=== PATIENT | male | born 1960 | race Caucasian/White ===

== ENCOUNTER 2024-12-12 12:58 | Outpatient (AMB) | payer MEDICARE, SELFPAY ==
[2024-12-12 13:28] VITALS: BP 138/80; PULSE 85; O2SAT 95
--- NOTE | 2024-12-12 13:28 | A.OFFVIS_ITS ---
Vital Signs 12/12/24 13:28 BP 138/80 Blood Pressure Location Lt brachial Position Sitting Pulse 85 Pulse Oximetry (%) 95 Oxygen Delivery Method Room Air Intake Visit Reasons: bl knee pain/ inj Intake Note: Patient presents for bilateral knee injection and pain in hands today. Allergies No Known Allergies Allergy (Verified 12/12/24 13:33) HPI HPI bl knee pain/ inj: Details: He had about 2 months of benefit with cortisone injection in bilateral knees. He continues to have knee pain. He is working 10 hour day 6 days a week. He is having weakness in his legs and feels very tired at the end of the day. He did 5 weeks of physical therapy, which focused on stretching, modalities and 10s unit. He did not receive guidance on strengthening program for his lower extremities. He is currently using Tylenol 2000 mg daily. Tylenol takes the edge off. He rarely uses ibuprofen because he only has 1 kidney. He was told to avoid oral NSAIDs. Diclofenac gel is ineffective. Cortisone injection bilateral CMCs were effective in lasted more than 3 months. He is also wearing a brace, which is helping during his working day. [facility] Surgical History (Updated 12/12/24 @ 13:38 by Jackelyn Escalante [facility]) H/O vascular surgery H/O knee surgery History of nephrectomy Physical Exam Vital Signs: Last Vital Signs Pulse 85 12/12/24 13:28 BP 138/80 12/12/24 13:28 Pulse Ox 95 12/12/24 13:28 Oxygen Delivery Method Room Air 12/12/24 13:28 Const Other: General: Comfortable CVS: RRR Respiratory: clear to auscultation bilaterally. Good respiratory effort Skin: No lesions seen MSK: Squaring of bilateral CMCs with tenderness on palpation. No effusions present. No tenderness on palpation of joint line of knees. Right knee crepitus palpated. Knee flexion 80 degrees bilateral. He does not have full external rotation of bilateral hips. Office Procedures AMB Joint Injection/Aspiration Coding - Small Joint Procedure code (CPT) selection complete AMB Joint Injection/Aspiration Joint Injection/Aspiration Details: Bilateral CMC joint Prep: site was prepped using aseptic technique Injected into each site: 10 mg of, Kenalog, with 0.25 mL of and 1% plain lidocaine Procedure: The patient tolerated the procedure well. Postprocedure protocol was discussed with patient. Coding - Small Joint Additional procedure code (CPT) needed (Bilateral procedure modifier needed) Office Meds lidocaine (PF) 10 mg/mL (1 %) injection solution Performing Provider: Maciel Clifford MD Performing Location: [facility] [place] [facility] Administered by: Maciel Clifford MD on 12/12/24 14:20 Dose Route Admin Location Dispensed Lot Number Expiration Date [facility] Advertising Director 2.5 mg Infiltration 2 mL [id number] FRESENIUS KABI Kenalog 40 mg/mL suspension for injection Performing Provider: Maciel Clifford MD Performing Location: [facility] [place] [facility] Administered by: Maciel Clifford MD on 12/12/24 14:20 Dose Route Admin Location Dispensed Lot Number Expiration Date [facility] Advertising Director 10 mg intra-articular 1 mL [id number] [employer] lidocaine (PF) 10 mg/mL (1 %) injection solution Performing Provider: Maciel Clifford MD Performing Location: [facility] [place] [facility] Administered by: Maciel Clifford MD on 12/12/24 14:18 Dose Route Admin Location Dispensed Lot Number Expiration Date [facility] Advertising Director 2.5 mg Infiltration 2 mL [id number] FRESENIUS KABI Kenalog 40 mg/mL suspension for injection Performing Provider: Maciel Clifford MD Performing Location: [facility] [place] [facility] Administered by: Maciel Clifford MD on 12/12/24 14:18 Dose Route Admin Location Dispensed Lot Number Expiration Date [facility] Advertising Director 10 mg intra-articular 1 mL [id number] [employer] Assessment & Plan Assessment & Plan (1) Osteoarthritis of knees, bilateral: Comment: Pain is uncontrolled. He did not have lasting benefit with cortisone injections. Tylenol takes the edge off. Contraindication to oral NSAIDs due to patient having 1 kidney. He went to physical therapy and continues to do the exercises at home but continues to have weakness in his lower extremities. We discussed another round of physical therapy, which he is agreeable to. We discussed next steps in management of pain control. Discussed side effects and benefits of Euflexxa. Code(s): M17.0 - Bilateral primary osteoarthritis of knee Category: Medical Qualifiers: Osteoarthritis type: primary Qualified Code(s): M17.0 - Bilateral primary osteoarthritis of knee Plan: Bilateral knee Euflexxa PA He agreed to another round of physical therapy for lower extremity strength training He will need to be scheduled 3 weekly consecutive visits as soon as Euflexxa is approved on Monday afternoon (2) Osteoarthritis of carpometacarpal (CMC) joint of both thumbs: Comment: Pain is uncontrolled. He has benefit with using wrist splints. He responded well to last cortisone injections in 05/2024. He is having difficulty with dexterity/fine motor movements with his fingers. He agreed to OT. Code(s): M18.0 - Bilateral primary osteoarthritis of first carpometacarpal joints Category: Medical Plan: He received bilateral CMC cortisone injections this visit OT referral to improve hand strength Return to clinic in 3 months Orders: Orders PT Evaluation and Treatment Today M17.0 - Bilateral primary osteoarthritis of knee AMB Joint Injection/Aspiration Today M18.0 - Bilateral primary osteoarthritis of first carpometacarpal joints AMB Joint Injection/Aspiration Today M18.0 - Bilateral primary osteoarthritis of first carpometacarpal joints OT Evaluation and Treatment Today M18.0 - Bilateral primary osteoarthritis of first carpometacarpal joints Medications: New Kenalog (triamcinolone acetonide) 10 mg (0.25 mL) intra-articular ONCE 0.25 mL 0RF NS M18.0 - Bilateral primary osteoarthritis of first carpometacarpal joints lidocaine (PF) 5 mg (0.5 mL) Infiltration ONCE 0.5 mL 0RF M18.0 - Bilateral primary osteoarthritis of first carpometacarpal joints lidocaine (PF) 5 mg (0.5 mL) Infiltration ONCE 0.5 mL 0RF M18.0 - Bilateral primary osteoarthritis of first carpometacarpal joints Kenalog (triamcinolone acetonide) 10 mg (0.25 mL) intra-articular ONCE 0.25 mL 0RF NS M18.0 - Bilateral primary osteoarthritis of first carpometacarpal joints Coding Level of Care Code Est Pt Level 4 (57762) Complex EM visit Add On G2211 Diagnoses Primary osteoarthritis of both knees M17.0 Osteoarthritis type: primary Osteoarthritis of carpometacarpal (CMC) joint of both thumbs M18.0 CPT Codes Coding - - Small joint: 77651 - Small Joint ([id number]) Coding - - Small joint: - Small Joint ([id number])
== END 2024-12-12 13:41 | disposition home or self-care (01) ==
PROVIDERS: Visit Provider Internal Medicine Rheumatology
DX: M17.0 Bilateral primary osteoarthritis of knee (principal); M18.0 Bilateral primary osteoarthritis of first carpometacarpal joints
CPT/HCPCS: 20600; 99214; G2211

== ENCOUNTER → 2024-12-12 12:58 | Outpatient (BNVA) | payer MEDICARE, SELFPAY | PROVIDERS: Visit Provider Internal Medicine Rheumatology | DX: M17.0 Bilateral primary osteoarthritis of knee (principal); M18.0 Bilateral primary osteoarthritis of first carpometacarpal joints | CPT/HCPCS: 20600; 99212; J2003; J3300 ==

== ENCOUNTER 2025-01-23 14:15 | Outpatient (AMB) | payer MEDICARE, SELFPAY ==
[2025-01-23 14:43] VITALS: BP 138/74; PULSE 50; O2SAT 98; BMI 37.4
--- NOTE | 2025-01-23 14:43 | A.OFFVIS_ITS ---
Vital Signs 01/23/25 14:43 Height 5 ft 10.28 in Weight 262 lb 9.129 oz BMI 37.4 BP 138/74 Blood Pressure Location Lt brachial Position Sitting Pulse 50 Pulse Source Pulse Oximeter Pulse Oximetry (%) 98 Oxygen Delivery Method Room Air Intake Visit Reasons: knee pain/euflexxa inj Intake Note: pt presents today for knee pain follow up as well as euflexxa injection Allergies No Known Allergies Allergy (Verified 01/23/25 14:43) HPI HPI knee pain/euflexxa inj: Details: He is recovering from URI. He denies fever and cough. He has sinus congestion. [facility] Surgical History H/O vascular surgery H/O knee surgery History of nephrectomy Review of Systems Const All systems reviewed & are unremarkable except as noted in HPI and below Physical Exam Vital Signs: Last Vital Signs Pulse 50 01/23/25 14:43 BP 138/74 01/23/25 14:43 Pulse Ox 98 01/23/25 14:43 Oxygen Delivery Method Room Air 01/23/25 14:43 BMI result Body Mass Index 37.4 Const Other: General: Comfortable MSK: No tenderness on palpation of joint line of knees. Right knee crepitus palpated. Knee flexion 80 degrees bilateral. He does not have full external rotation of bilateral hips. Office Procedures AMB Joint Injection/Aspiration Joint Injection/Aspiration Details: Bilateral knees Prep: site was prepped using aseptic technique Injected: Euflexxa 20 mg was injected into each knee using 25 gauge 1-1/2 inch needle Procedure: The patient tolerated the procedure well. Postprocedure protocol was discussed with patient. Coding 15171 - Bilateral Large Joint Procedure code (CPT) selection complete AMB Joint Injection/Aspiration Coding 05448 - Bilateral Large Joint Procedure code (CPT) selection complete Office Meds Euflexxa 10 mg/mL (mw 2.4-3.6 million) intra-articular syringe Performing Provider: Maciel Clifford MD Performing Location: [facility] Administered by: Maciel Clifford MD on 01/23/25 20:50 Dose Route Admin Location Dispensed Lot Number Expiration Date N[employer] Quality Control Technician 20 mg intra-articular 2 mL [id number] Euflexxa 10 mg/mL (mw 2.4-3.6 million) intra-articular syringe Performing Provider: Maciel Clifford MD Performing Location: [facility] Administered by: Maciel Clifford MD on 01/23/25 20:50 Dose Route Admin Location Dispensed Lot Number Expiration Date [employer] Quality Control Technician 20 mg intra-articular 2 mL [id number] Assessment & Plan Assessment & Plan (1) Osteoarthritis of knees, bilateral: Comment: Pain is uncontrolled. He is due for Euflexxa bilateral knees today. Rheumatology history: Failed cortisone injections. Tylenol takes the edge off. Contraindication to oral NSAIDs due to patient having 1 kidney. He went to physical therapy and continues to do the exercises at home but continues to have weakness in his lower extremities. Euflexxa 12/2024 Code(s): M17.0 - Bilateral primary osteoarthritis of knee Category: Medical Qualifiers: Osteoarthritis type: primary Qualified Code(s): M17.0 - Bilateral primary osteoarthritis of knee Plan: Patient received bilateral knee Euflexxa injections Return to clinic in 1 week Orders: Orders AMB Joint Injection/Aspiration 01/23/25 M17.0 - Bilateral primary osteoarthritis of knee AMB Joint Injection/Aspiration 01/23/25 M17.0 - Bilateral primary osteoarthritis of knee Coding Level of Care Code Est Pt Level 3 (39438) Complex EM visit Add On G2211 Diagnoses Primary osteoarthritis of both knees M17.0 Osteoarthritis type: primary CPT Codes Coding - 21682 - Bilateral Large Joint: 60460 - Bilateral Large Joint ([id number]) Coding - 01048 - Bilateral Large Joint: 64248 - Bilateral Large Joint ([id number])
== END 2025-01-23 15:24 | disposition home or self-care (01) ==
PROVIDERS: PCP Internal Medicine; Visit Provider Internal Medicine Rheumatology
DX: M17.0 Bilateral primary osteoarthritis of knee (principal)
CPT/HCPCS: 20610

== ENCOUNTER → 2025-01-23 14:15 | Outpatient (BNVA) | payer MEDICARE, SELFPAY | PROVIDERS: PCP Internal Medicine; Visit Provider Internal Medicine Rheumatology | DX: M17.0 Bilateral primary osteoarthritis of knee (principal) | CPT/HCPCS: 20610; 99212; J7323 ==

== ENCOUNTER 2025-01-27 13:58 | Outpatient (RCR) | payer MEDICARE, SELFPAY ==
--- NOTE | 2024-12-31 12:47 | MHC.OT.EP ---
[address] [phone] Occupational Therapy Plan of Care Patient Name: Gerald Harrington Date of Evaluation: 12/24/24 Diagnosis: Pain Location: B thumbs Pain Score: 5 Pain Scale Used: Aggravating Factors: over use - PT WILL NEED MODIFICATIONS AT WORK Alleviating Factors: Assessment: Pt is a 64yr old R hand dominants male who has been experiencing bilateral thumb pain for years. He saw the MD who diagnosed him w/ B CMC OA and gave him cortisone shots and referred him to skilled OT therapy. He reports the cortisone shots did not help. 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 He is unable to wear splints while working; but has purchased an orthoses made of rubber which he reports helps and will bring to the next tx. Pt was referred to skilled OT therapy for education on joint protection, ROM exercises, and increased pain free use of his B hands. Frequency and Duration: The patient will be seen 1 x a week for 4 weeks Short Term Goals: SEE BELOW Nursing Home Goals: Pt will be complaint w/ joint protection techniques Pt will report 2/10 pain in his R hand w/ activity Pt will be compliant w/ use of modalities to decrease pain Treatment Plan: Therapeutic Exercise Therapeutic Activity Home Exercise Program Splinting Neuro Re-ed Patient Education Desensitization/Sensory Re-ed Edema Control ADL Training Ultrasound NMES Iontophoresis Paraffin Fluidotherapy MHP Cold Packs Joint Mobilization Soft Tissue Mobilization Kinesiotaping Other (see comments) Electronically Signed By: Ronna Sosa OTR/L Please Sign and return to therapist. Thank you once again for your referral.
== END 2025-03-13 10:18 | disposition home or self-care (01) ==
LOC: HO.OT 13:58
PROVIDERS: PCP Internal Medicine; Visit Provider Internal Medicine Rheumatology
DX: M18.0 Bilateral primary osteoarthritis of first carpometacarpal joints (principal)
CPT/HCPCS: 97035; 97110; 97140; 97165

== ENCOUNTER 2025-01-29 09:16 | Outpatient (AMB) | payer MEDICARE, SELFPAY ==
--- NOTE | 2025-01-29 09:50 | A.OFFVIS_ITS ---
Vital Signs 01/29/25 10:00 Height 5 ft 10 in Weight 262 lb BMI 37.6 BP 124/80 Blood Pressure Location Lt brachial Position Sitting Pulse 64 Pulse Source Pulse Oximeter Pulse Oximetry (%) 98 Oxygen Delivery Method Room Air Intake Visit Reasons: knee pain/euflexxa inj Intake Note: pt states that the injections from last week wore off. Allergies No Known Allergies Allergy (Verified 01/23/25 14:43) HPI HPI knee pain/euflexxa inj: Details: Doing well. Increase mobility after 1st Euflexxa injections. [facility] Surgical History H/O vascular surgery H/O knee surgery History of nephrectomy Review of Systems Const All systems reviewed & are unremarkable except as noted in HPI and below Physical Exam Vital Signs: Last Vital Signs Pulse 64 01/29/25 10:00 BP 124/80 01/29/25 10:00 Pulse Ox 98 01/29/25 10:00 Oxygen Delivery Method Room Air 01/29/25 10:00 BMI result Body Mass Index 37.6 Const Other: General: Comfortable MSK: No tenderness on palpation of joint line of knees. Right knee crepitus palpated. Knee flexion 80 degrees bilateral. He does not have full external rotation of bilateral hips. Office Procedures AMB Joint Injection/Aspiration Joint Injection/Aspiration Details: Bilateral knees Prep: site was prepped using aseptic technique Injected: Euflexxa 20 mg was injected into each knee using 25 gauge 1-1/2 inch needle Procedure: The patient tolerated the procedure well. Postprocedure protocol was discussed with patient. Coding 72604 - Bilateral Large Joint Procedure code (CPT) selection complete AMB Joint Injection/Aspiration Coding 03001 - Bilateral Large Joint Procedure code (CPT) selection complete Office Meds Euflexxa 10 mg/mL (mw 2.4-3.6 million) intra-articular syringe Performing Provider: Maciel Clifford MD Performing Location: [facility] [place] [facility] Administered by: Maciel Clifford MD on 02/01/25 13:21 Dose Route Admin Location Dispensed Lot Number Expiration Date NDC Correspondence Clerk 20 mg intra-articular 2 mL [id number] Euflexxa 10 mg/mL (mw 2.4-3.6 million) intra-articular syringe Performing Provider: Maciel Clifford MD Performing Location: [facility] [place] [facility] Administered by: Maciel Clifford MD on 02/01/25 13:21 Dose Route Admin Location Dispensed Lot Number Expiration Date [facility] Correspondence Clerk 20 mg intra-articular 2 mL [id number] Assessment & Plan Assessment & Plan (1) Osteoarthritis of knees, bilateral: Comment: Pain is uncontrolled. He is due for Euflexxa bilateral knees #2 today. Rheumatology history: Failed cortisone injections. Tylenol takes the edge off. Contraindication to oral NSAIDs due to patient having 1 kidney. He went to physical therapy and continues to do the exercises at home but continues to have weakness in his lower extremities. Euflexxa 12/2024 Code(s): M17.0 - Bilateral primary osteoarthritis of knee Category: Medical Qualifiers: Osteoarthritis type: primary Qualified Code(s): M17.0 - Bilateral primary osteoarthritis of knee Plan: Patient received bilateral knee Euflexxa injections Return to clinic in 1 week Orders: Orders AMB Joint Injection/Aspiration 01/29/25 M17.0 - Bilateral primary osteoarthritis of knee AMB Joint Injection/Aspiration 01/29/25 M17.0 - Bilateral primary osteoarthritis of knee Medications: New Euflexxa (sodium hyaluronate (viscosup)) 20 mg (2 mL) intra-articular ONCE 2 mL 0RF NS M17.0 - Bilateral primary osteoarthritis of knee Euflexxa (sodium hyaluronate (viscosup)) 20 mg (2 mL) intra-articular ONCE 2 mL 0RF NS M17.0 - Bilateral primary osteoarthritis of knee Coding Level of Care Code Est Pt Level 3 (03451) Complex EM visit Add On G2211 Diagnoses Primary osteoarthritis of both knees M17.0 Osteoarthritis type: primary CPT Codes Coding - 44977 - Bilateral Large Joint: 99160 - Bilateral Large Joint ([id number]) Coding - 67515 - Bilateral Large Joint: 15847 - Bilateral Large Joint ([id number])
[2025-01-29 10:00] VITALS: BP 124/80; PULSE 64; O2SAT 98; BMI 37.6
== END 2025-01-29 10:08 | disposition home or self-care (01) ==
PROVIDERS: PCP Internal Medicine; Visit Provider Internal Medicine Rheumatology
DX: M17.0 Bilateral primary osteoarthritis of knee (principal)
CPT/HCPCS: 20610; 99213

== ENCOUNTER → 2025-01-29 09:16 | Outpatient (BNVA) | payer MEDICARE, SELFPAY | PROVIDERS: PCP Internal Medicine; Visit Provider Internal Medicine Rheumatology | DX: M17.0 Bilateral primary osteoarthritis of knee (principal) | CPT/HCPCS: 20610; 99212; J7323 ==

== ENCOUNTER → 2025-02-11 14:13 | Outpatient (BNVA) | payer MEDICARE, SELFPAY | PROVIDERS: PCP Internal Medicine; Visit Provider Internal Medicine Rheumatology | DX: M17.0 Bilateral primary osteoarthritis of knee (principal); M18.0 Bilateral primary osteoarthritis of first carpometacarpal joints | CPT/HCPCS: 20610; 99212; J7323 ==

== ENCOUNTER 2025-10-28 14:44 | Outpatient (AMB) | payer MEDICARE, SELFPAY ==
--- NOTE | 2025-10-28 14:48 | A.OFFVIS_ITS ---
Vital Signs 10/28/25 14:49 Height 5 ft 11 in Weight 260 lb 2.327 oz BMI 36.3 BP 120/80 Blood Pressure Location Rt brachial Position Sitting Pulse 97 Pulse Source Pulse Oximeter Pulse Oximetry (%) 99 Oxygen Delivery Method Room Air Intake Visit Reasons: Knee pain/Euflexxa #1 Intake Note: Patient presents for euflexxa injection 1 Accompanied by: Self / Same As Patient Allergies No Known Allergies Allergy (Verified 10/28/25 14:48) HPI HPI Knee pain/Euflexxa #1: Details: Hard to get up and walk. He will rest when he gets up and then start his gait. Later part of summer he had more pain in knees and was more cautious when ambulating. He has been experiencing hand pain making it difficult for him to utilize his hands. [facility] Surgical History H/O vascular surgery H/O knee surgery History of nephrectomy Physical Exam Vital Signs: Last Vital Signs Pulse 97 10/28/25 14:49 BP 120/80 10/28/25 14:49 Pulse Ox 99 10/28/25 14:49 Oxygen Delivery Method Room Air 10/28/25 14:49 BMI result Body Mass Index 36.3 Const Other: General: Comfortable MSK: Tender bilateral CMCs with squaring present. No tenderness on palpation of joint line of knees. Right knee crepitus palpated. Knee flexion 90 degrees bilateral. He does not have full external rotation of bilateral hips. Office Procedures AMB Joint Injection/Aspiration Joint Injection/Aspiration Details: Bilateral CMC joint Prep: site was prepped using aseptic technique Injected into each site: 10 mg of, Kenalog, with 0.25 mL of and 1% plain lidocaine Procedure: Informed verbal consent was obtained. The patient tolerated the procedure well. Postprocedure protocol was discussed with patient. Coding - Small Joint Additional procedure code (CPT) needed (Bilateral procedure) AMB Joint Injection/Aspiration Joint Injection/Aspiration Details: Bilateral knees Prep: site was prepped using aseptic technique Injected: Euflexxa 20 mg was injected into each knee using 25 gauge 1-1/2 inch needle Procedure: Informed verbal consent was obtained. The patient tolerated the procedure well. Postprocedure protocol was discussed with patient. Coding - Bilateral Large Joint Procedure code (CPT) selection complete AMB Joint Injection/Aspiration Coding - Bilateral Large Joint Procedure code (CPT) selection complete AMB Joint Injection/Aspiration Coding - Small Joint Procedure code (CPT) selection complete Office Meds lidocaine (PF) 10 mg/mL (1 %) injection solution Performing Provider: Maciel Clifford MD Performing Location: [facility] [place] [facility] Administered by: Maciel Clifford MD on 10/28/25 15:13 Dose Route Admin Location Dispensed Lot Number Expiration Date [facility] [place] 0.25 mL Infiltration 2 mL [id number] 07/27/28 77042-546-36 CAITLIN [employer]US KA Total Dispensed Waste 2 mL 87.5 % Kenalog 40 mg/mL suspension for injection Performing Provider: Maciel Clifford MD Performing Location: [facility] [place] [facility] Administered by: Maciel Clifford MD on 10/28/25 15:13 Dose Route Admin Location Dispensed Lot Number Expiration Date [facility] [place] 10 mg intra-articular 1 mL [id number] 05/26/27 [address]-0 A [employer] Total Dispensed Waste 1 mL 75 % Euflexxa 10 mg/mL (mw 2.4-3.6 million) intra-articular syringe Performing Provider: Maciel Clifford MD Performing Location: [facility] [place] [facility] Administered by: Maciel Clifford MD on 10/28/25 15:13 Dose Route Admin Location Dispensed Lot Number Expiration Date [facility] [place] 20 mg intra-articular 2 mL [id number] 10/27/26 [address]-9 FE [employer]ING [employer] Total Dispensed Waste 2 mL 0 % Euflexxa 10 mg/mL (mw 2.4-3.6 million) intra-articular syringe Performing Provider: Maciel Clifford MD Performing Location: [facility] [place] [facility] Administered by: Maciel Clifford MD on 10/28/25 15:13 Dose Route Admin Location Dispensed Lot Number Expiration Date [facility] [place] 20 mg intra-articular 2 mL [id number] 10/27/26 [address]-6 FE [employer]ING [employer]ARMAC Total Dispensed Waste 2 mL 0 % lidocaine (PF) 10 mg/mL (1 %) injection solution Performing Provider: Maciel Clifford MD Performing Location: [facility] [place] [facility] Administered by: Maciel Clifford MD on 10/28/25 15:13 Dose Route Admin Location Dispensed Lot Number Expiration Date [facility] [place] 0.25 mL Infiltration 2 mL [id number] 07/27/28 81144-925-55 CAITLIN SHAH Total Dispensed Waste 2 mL 87.5 % Kenalog 40 mg/mL suspension for injection Performing Provider: Maciel Clifford MD Performing Location: [facility] [place] [facility] Administered by: Maciel Clifford MD on 10/28/25 15:13 Dose Route Admin Location Dispensed Lot Number Expiration Date [facility] [place] 10 mg intra-articular 1 mL [id number] 04/29/27 [address]-6 A [employer] Total Dispensed Waste 1 mL 75 % Assessment & Plan Assessment & Plan (1) Osteoarthritis of knees, bilateral: Comment: Pain is uncontrolled. Euflexxa has worn off. Rheumatology history: Failed cortisone injections. Tylenol takes the edge off. Contraindication to oral NSAIDs due to patient having 1 kidney. He went to physical therapy and continues to do the exercises at home but continues to have weakness in his lower extremities. Euflexxa 12/2024-01/2025, 10/2025 Code(s): M17.0 - Bilateral primary osteoarthritis of knee Category: Medical Qualifiers: Osteoarthritis type: primary Qualified Code(s): M17.0 - Bilateral primary osteoarthritis of knee Plan: Patient received bilateral knee Euflexxa injections #1 this is that Return to clinic in 1 week (2) Osteoarthritis of carpometacarpal (CMC) joint of both thumbs: Comment: Pain in bilateral CMCs is uncontrolled. Rheumatology history: Bilateral cortisone injections May 2024 and 11/2024 and utilizes bracing when needed. He has benefit with using wrist splints. Completed OT. Code(s): M18.0 - Bilateral primary osteoarthritis of first carpometacarpal joints Category: Medical Plan: Patient received bilateral CMC cortisone injections Continue exercises learned from OT Continue splinting CMCs PRN Return to clinic in 6 months or sooner if needed for cortisone injections CMCs Orders: Orders AMB Joint Injection/Aspiration Today M18.0 - Bilateral primary osteoarthritis of first carpometacarpal joints AMB Joint Injection/Aspiration Today M17.0 - Bilateral primary osteoarthritis of knee AMB Joint Injection/Aspiration Today M17.0 - Bilateral primary osteoarthritis of knee AMB Joint Injection/Aspiration Today M18.0 - Bilateral primary osteoarthritis of first carpometacarpal joints Coding Level of Care Code Est Pt Level 4 (55061) Complex visit Add On G2211 Diagnoses Primary osteoarthritis of both knees M17.0 Osteoarthritis type: primary Osteoarthritis of carpometacarpal (CMC) joint of both thumbs M18.0 CPT Codes Coding - 64426 - Small joint: 28851 - Small Joint ([id number]) Coding - 45409 - Bilateral Large Joint: 86524 - Bilateral Large Joint ([id number]) Coding - 56046 - Bilateral Large Joint: 12476 - Bilateral Large Joint ([id number]) Coding - 95711 - Small joint: 12356 - Small Joint ([id number])
[2025-10-28 14:49] VITALS: BP 120/80; PULSE 97; O2SAT 99; BMI 36.3
--- OUTSIDE RECORDS SUMMARY | 2025-10-28 16:38 | XMS_ITS | Clinical Summary ---
Author Organization [facility] Address [address] [employer] [address] [address] Phone Care Team Providers Care Refining Engineer Name Role Phone Sin Vegas MD Primary Care Provider [phone] Allergies No known active allergies Medications acetaminophen (TYLENOL) 500 MG tablet Take 1,000 mg by mouth. 01/18/2023 Active simvastatin (ZOCOR) 20 MG tablet take 1 tablet by mouth everyday at bedtime 09/11/2023 Active Active Problems Problem Noted Date Diagnosed Date Primary osteoarthritis of both first carpometaca rpal joints 11/03/2023 Assessment & Plan (11/03/2023 3:49 PM EST): Degenerative arthritis in multiple areas most bothersome today at the base of both thumbs, with pain on grasping. Injected both basal joints with 40 mg of triamcinolone. He can come in for knee injections in a few weeks. Continue with Tylenol 500 mg as needed. Family History Medical History Relation Comments Diabetes Father Rheumatoid arthritis Mother Diabetes Paternal Grandfather Diabetes Paternal Grandmother No Known Problems Sister Relation Status Comments Father Mother Paternal Grandfather Paternal Grandmother Sister Alive Social History Tobacco Use Types Packs/Day Years Used Date Smoking Tobacco: Former Cigarettes Smokeless Tobacco: Never Tobacco Cessation:Counseling Given: Not Answered Alcohol Use Standard Drinks/Week Comments Yes 0 (1 standard drink = 0.6 oz pur e alcohol) couple of beers of a year Education Answer Date Recorded Are you interested in more education? Not on ranjana e 09/29/2023 Are you concerned about learning? Not on file 09/29/2023 No 09/29/2023 No 09/29/2023 Digital Access Answer Date Recorded No 09/29/2023 No 09/29/2023 Reliable internet access at home? Not on file 09/29/2023 Device with a working camera? Not on file Sex and Gender Information Value Date Recorded Sex Assigned at Not on file Legal Sex Male 7:24 PM EST Gender Identity Not on file Sexual Orientation Not on file Last Filed Vital Signs Vital Sign Reading Time Taken Comments Blood Pressure 160/90 10/23/2023 4:01 PM EST Pulse 65 10/23/2023 4:01 PM EST Temperature - - Respiratory Rate - - Oxygen Saturation 96% 10/23/2023 4:01 PM EST Inhaled Oxygen Concentration - - Weight 101.2 kg (223 lb) 10/23/2023 4:01 PM EST Height 180.3 cm (5' 11 ) 10/23/2023 4:01 PM EST Body Mass Index 31.1 10/23/2023 4:01 PM EST Plan of Treatment Health Maintenance Due Date Last Done Comments Adult Td,Tdap Booster 1959 LIPID PANEL 1959 DEPRESSION SCREENING 1971 SMOKING Hx and SMOKELESS TOBACCO SCREENING 1972 HEPATITIS C SCREENING 1977 SCREENING FOR DIABETES 1994 COLOGUARD 2004 COLONOSCOPY 2004 COLORECTAL CANCER SCREENING 2004 FIT TEST 2004 FOBT 2004 SIGMOIDOSCOPY 2004 VIRTUAL COLONOSCOPY 2004 PNEUMOCOCCAL VACCINES (50+ years) (1 of 1 - PCV) 2009 ZOSTER VACCINES (1 of 2) 2009 ABDOMINAL AORTIC ANEURYSM (AAA) SCREENING 2024 INFLUENZA VACCINE (#1) 2025 , 10/10/2021, 08/05/2019, Additional history exists COVID-19 VACCINE (3 - season) 2025 03/27/2022, 03/03/2021 RSV VACCINE (1 - 1-dose 75+ series) 2034 HEPATITIS A VACCINES Aged Out No long er eligible based on patient's age to complete this topic HIB VACCINES Aged Out No longer eligi ble based on patient's age to complete this topic IPV VACCINES Aged Out No longer eligi ble based on patient's age to complete this topic MENINGOCOCCAL VACCINES (ACWY) Aged Out No longer eligible based on patient's age to complete this topic MENINGOCOCCAL VACCINES (B) Aged Out N o longer eligible based on patient's age to complete this topic Medical Devices Not on file Insurance [facility] Care Teams Refining Engineer Relationship Specialty Start Date End Date Sin Vegas MD [address] [place] [id number] PCP - General 10/23/23 Additional Source Comments The information contained in this document represents components of the legal health record. It is not the complete legal health record.[facility]
== END 2025-10-28 15:30 | disposition home or self-care (01) ==
LOC: HO.RHES 14:45
PROVIDERS: PCP Internal Medicine; Visit Provider Internal Medicine Rheumatology
DX: M17.0 Bilateral primary osteoarthritis of knee (principal); M18.0 Bilateral primary osteoarthritis of first carpometacarpal joints
CPT/HCPCS: 20600; 20610; 99213

== ENCOUNTER → 2025-10-28 14:44 | Outpatient (BNVA) | payer MEDICARE, SELFPAY | PROVIDERS: PCP Internal Medicine; Visit Provider Internal Medicine Rheumatology | DX: M18.0 Bilateral primary osteoarthritis of first carpometacarpal joints (principal); M17.0 Bilateral primary osteoarthritis of knee; M25.562 Pain in left knee; M25.561 Pain in right knee; M79.642 Pain in left hand; M79.641 Pain in right hand | CPT/HCPCS: 20600; 20610; 99212; J2003; J3301; J7323 ==

== ENCOUNTER 2025-11-04 14:44 | Outpatient (AMB) | payer MEDICARE, SELFPAY ==
[2025-11-04 14:45] VITALS: BP 120/80; PULSE 94; O2SAT 98; BMI 36.3
--- NOTE | 2025-11-04 14:45 | MHC.OFFVIS ---
Vital Signs 11/04/25 14:45 Height 5 ft 11 in Weight 260 lb BMI 36.3 BP 120/80 Blood Pressure Location Rt brachial Position Sitting Pulse 94 Pulse Source Pulse Oximeter Pulse Oximetry (%) 98 Oxygen Delivery Method Room Air Intake Visit Reasons: Knee pain/Euflexxa #2 Intake Note: Euflexxa 2 Accompanied by: Self / Same As Patient Allergies No Known Allergies Allergy (Verified 11/04/25 14:46) HPI HPI Knee pain/Euflexxa #2: Details: He had improvement of knee pain. He has not use Tylenol in the last week. Hand pain has improved. [facility] Surgical History H/O vascular surgery H/O knee surgery History of nephrectomy Physical Exam Vital Signs: Last Vital Signs Pulse 94 11/04/25 14:45 BP 120/80 11/04/25 14:45 Pulse Ox 98 11/04/25 14:45 Oxygen Delivery Method Room Air 11/04/25 14:45 BMI result Body Mass Index 36.3 Const Other: General: Comfortable MSK: bilateral CMCs with squaring present. No tenderness on palpation of joint line of knees. Right knee crepitus palpated. Knee flexion 90 degrees bilateral. He does not have full external rotation of bilateral hips. Office Procedures AMB Joint Injection/Aspiration Joint Injection/Aspiration Details: Bilateral knees Prep: site was prepped using aseptic technique Injected: Euflexxa 20 mg was injected into each knee using 25 gauge 1-1/2 inch needle Procedure: Informed verbal consent was obtained. The patient tolerated the procedure well. Postprocedure protocol was discussed with patient. Coding 40129 - Bilateral Large Joint Procedure code (CPT) selection complete AMB Joint Injection/Aspiration Coding 12503 - Large joint Procedure code (CPT) selection complete Office Meds Euflexxa 10 mg/mL (mw 2.4-3.6 million) intra-articular syringe Performing Provider: Maciel Clifford MD [place] [facility] [place] Administered by: Maciel Clifford MD on 11/04/25 14:57 Dose Route Admin Location Dispensed Lot Number Expiration Date [employer] 20 mg intra-articular knee 2 mL [id number] 10/27/26 [address]-9 [employer] Total Dispensed Waste 2 mL 0 % Euflexxa 10 mg/mL (mw 2.4-3.6 million) intra-articular syringe Performing Provider: Maciel Clifford MD [place] [facility] [place] Administered by: Maciel Clifford MD on 11/04/25 14:57 Dose Route Admin Location Dispensed Lot Number Expiration Date [employer] 20 mg intra-articular knee 2 mL [id number] 10/27/26 [address]-7 [employer] Total Dispensed Waste 2 mL 0 % Assessment & Plan Assessment & Plan (1) Osteoarthritis of knees, bilateral: Comment: Pain is better controlled with 1st Euflexxa injections. He is here for bilateral knee Euflexxa injections #2. Rheumatology history: Failed cortisone injections. Tylenol takes the edge off. Contraindication to oral NSAIDs due to patient having 1 kidney. He went to physical therapy and continues to do the exercises at home but continues to have weakness in his lower extremities. Euflexxa 12/2024-01/2025, 10/2025 Code(s): M17.0 - Bilateral primary osteoarthritis of knee Category: Medical Qualifiers: Osteoarthritis type: primary Qualified Code(s): M17.0 - Bilateral primary osteoarthritis of knee Plan: Patient received bilateral knee Euflexxa injections #2 this visit Return to clinic in 1 week (2) Osteoarthritis of carpometacarpal (CMC) joint of both thumbs: Comment: Pain in bilateral CMCs is controlled with cortisone injections from last visit. Rheumatology history: Bilateral cortisone injections May 2024, 11/2024, 10/2025 and utilizes bracing when needed. He has benefit with using wrist splints. Completed OT. Code(s): M18.0 - Bilateral primary osteoarthritis of first carpometacarpal joints Category: Medical Plan: Monitor clinically Continue exercises learned from OT Continue to use CMC splints Orders: Orders AMB Joint Injection/Aspiration Today M17.0 - Bilateral primary osteoarthritis of knee AMB Joint Injection/Aspiration Today M17.0 - Bilateral primary osteoarthritis of knee Coding Level of Care Code Est Pt Level 3 (66869) Complex visit Add On G2211 Diagnoses Primary osteoarthritis of both knees M17.0 Osteoarthritis type: primary Osteoarthritis of carpometacarpal (CMC) joint of both thumbs M18.0 CPT Codes Coding - 47207 Large joint: 90911 - Large joint ([id number]) Coding - 02212 - Bilateral Large Joint: - Bilateral Large Joint ([id number])
--- OUTSIDE RECORDS SUMMARY | 2025-11-04 20:50 | XMS_ITS | Clinical Summary ---
Author Organization [facility] Address Formerly [facility] [employer] [address] [address] Phone Care Team Providers Care Computer Mechanic Name Role Phone Sin Vegas MD Primary Care Provider [phone] Allergies No known active allergies Medications acetaminophen [...] topic Medical Devices Not on file Insurance [facility] Care Teams Computer Mechanic Relationship Specialty Start Date End Date Sin Vegas MD [address] [address] PCP - General 10/23/23 Additional Source Comments The information contained in this document represents components of the legal health record. It is not the complete legal health record.[facility]
== END 2025-11-04 15:20 | disposition home or self-care (01) ==
LOC: HO.RHES 14:46
PROVIDERS: PCP Internal Medicine; Visit Provider Internal Medicine Rheumatology
DX: M17.0 Bilateral primary osteoarthritis of knee (principal)
CPT/HCPCS: 20610

== ENCOUNTER → 2025-11-04 14:44 | Outpatient (BNVA) | payer MEDICARE, SELFPAY | PROVIDERS: PCP Internal Medicine; Visit Provider Internal Medicine Rheumatology | DX: M17.0 Bilateral primary osteoarthritis of knee (principal); M25.561 Pain in right knee; M25.562 Pain in left knee | CPT/HCPCS: 20610; J7323 ==

== ENCOUNTER 2025-11-11 14:52 | Outpatient (AMB) | payer MEDICARE, SELFPAY ==
[2025-11-11 15:01] VITALS: BP 100/80; PULSE 94; O2SAT 94; BMI 36.3
--- NOTE | 2025-11-11 15:01 | MHC.OFFVIS ---
Vital Signs 11/11/25 15:01 Height 5 ft 11 in Weight 260 lb BMI 36.3 BP 100/80 Blood Pressure Location Rt brachial Position Sitting Pulse 94 Pulse Source Pulse Oximeter Pulse Oximetry (%) 94 Oxygen Delivery Method Room Air Intake Visit Reasons: Knee pain/Euflexxa #3 Per MD Intake Note: Knee pain euflexxa 3 Accompanied by: Self / Same As Patient Allergies No Known Allergies Allergy (Verified 11/11/25 15:02) HPI HPI Knee pain/Euflexxa #3 Per MD: Details: He is having increased knee pain in the last week after last injection. He has been using Tylenol to control his pain. CMC pain is controlled. [facility] Surgical History H/O vascular surgery H/O knee surgery History of nephrectomy Physical Exam Vital Signs: Last Vital Signs Pulse 94 11/11/25 15:01 BP 100/80 11/11/25 15:01 Pulse Ox 94 11/11/25 15:01 Oxygen Delivery Method Room Air 11/11/25 15:01 BMI result Body Mass Index 36.3 Const Other: General: Comfortable MSK: Squaring of bilateral CMCs. He has slight soft tissue swelling right CMC. No tenderness on palpation of joint line of knees. Right knee crepitus palpated. Knee flexion 90 degrees bilateral. He does not have full external rotation of bilateral hips. Office Procedures AMB Joint Injection/Aspiration Joint Injection/Aspiration Details: Bilateral knees Prep: site was prepped using aseptic technique Injected: Euflexxa 20 mg was injected into each knee using 25 gauge 1-1/2 inch needle Procedure: Informed verbal consent was obtained. The patient tolerated the procedure well. Postprocedure protocol was discussed with patient. Coding 35410 - Bilateral Large Joint Procedure code (CPT) selection complete AMB Joint Injection/Aspiration Coding 71743 - Bilateral Large Joint Procedure code (CPT) selection complete Office Meds Euflexxa 10 mg/mL (mw 2.4-3.6 million) intra-articular syringe Performing Provider: Maciel Clifford MD [place] [facility] [place] Administered by: Maciel Clifford MD on 11/11/25 15:10 Dose Route Admin Location Dispensed Lot Number Expiration Date [facility] [employer] 20 mg intra-articular right knee 2 mL [id number] 10/27/26 [address]-7 [employer] Total Dispensed Waste 2 mL 0 % Euflexxa 10 mg/mL (mw 2.4-3.6 million) intra-articular syringe Performing Provider: Maciel Clifford MD [place] [facility] [place] Administered by: Maciel Clifford MD on 11/11/25 15:10 Dose Route Admin Location Dispensed Lot Number Expiration Date [employer] 20 mg intra-articular left knee 2 mL [id number] 10/27/26 [address]-9 [employer] Total Dispensed Waste 2 mL 0 % Assessment & Plan Assessment & Plan (1) Osteoarthritis of knees, bilateral: Comment: He had initial benefit with 1st injection but reports that pain returned. He is here for bilateral knee Euflexxa injections #3. Rheumatology history: Failed cortisone injections. Tylenol takes the edge off. Contraindication to oral NSAIDs due to patient having 1 kidney. He went to physical therapy and continues to do the exercises at home but continues to have weakness in his lower extremities. Euflexxa 12/2024-01/2025, 10/2025 Code(s): M17.0 - Bilateral primary osteoarthritis of knee Category: Medical Qualifiers: Osteoarthritis type: primary Qualified Code(s): M17.0 - Bilateral primary osteoarthritis of knee Plan: Patient received bilateral knee Euflexxa injections #3 this visit Return to clinic in 6 months or sooner if needed. Can consider duloxetine/gabapentin or geniculate nerve block if he does not have benefit with Euflexxa (2) Osteoarthritis of carpometacarpal (CMC) joint of both thumbs: Comment: Pain in bilateral CMCs is controlled with cortisone injections from last visit. Rheumatology history: Bilateral cortisone injections May 2024, 11/2024, 10/2025 and utilizes bracing when needed. He has benefit with using wrist splints. Completed OT. Code(s): M18.0 - Bilateral primary osteoarthritis of first carpometacarpal joints Category: Medical Plan: Monitor clinically Continue exercises learned from OT Continue to use CMC splints RTC 6 months or sooner if needed Orders: Orders AMB Joint Injection/Aspiration Today M17.0 - Bilateral primary osteoarthritis of knee AMB Joint Injection/Aspiration Today M17.0 - Bilateral primary osteoarthritis of knee Coding Level of Care Code Est Pt Level 3 (80528) Add On Problem Visit Only Diagnoses Primary osteoarthritis of both knees M17.0 Osteoarthritis type: primary Osteoarthritis of carpometacarpal (CMC) joint of both thumbs M18.0 CPT Codes Coding - 72620 - Bilateral Large Joint: 52190 - Bilateral Large Joint ([id number]) Coding - 29856 - Bilateral Large Joint: 63348 - Bilateral Large Joint ([id number])
--- OUTSIDE RECORDS SUMMARY | 2025-11-11 19:13 | XMS_ITS | Clinical Summary ---
Author Organization [facility] Address [address] [address] Phone Care Team Providers Care School Inspector Name Role Phone Sin Vegas MD Primary Care Provider [phone] Allergies No known active allergies Medications acetaminophen [...] topic Medical Devices Not on file Insurance [facility] Care Teams School Inspector Relationship Specialty Start Date End Date Sin Vegas MD [address] [address] PCP - General 10/23/23 Additional Source Comments The information contained in this document represents components of the legal health record. It is not the complete legal health record.[facility]
== END 2025-11-11 15:00 | disposition home or self-care (01) ==
LOC: HO.RHES 14:52
PROVIDERS: PCP Internal Medicine; Visit Provider Internal Medicine Rheumatology
DX: M17.0 Bilateral primary osteoarthritis of knee (principal); M18.0 Bilateral primary osteoarthritis of first carpometacarpal joints
CPT/HCPCS: 20610; 99213

== ENCOUNTER → 2025-11-11 14:52 | Outpatient (BNVA) | payer MEDICARE, SELFPAY | PROVIDERS: PCP Internal Medicine; Visit Provider Internal Medicine Rheumatology | DX: M17.0 Bilateral primary osteoarthritis of knee (principal); M18.0 Bilateral primary osteoarthritis of first carpometacarpal joints | CPT/HCPCS: 20610; 99212; J7323 ==

== ENCOUNTER 2025-11-26 09:39 | Outpatient (REF) | payer MEDICARE, SELFPAY ==
[2025-11-26 15:27] LABS: Resp Syncy Virus RNA Qual PCR NEGATIVE (Negative); SARS COV2 PCR INHOUSE NEGATIVE (Negative)
== END 2025-11-26 09:40 | disposition home or self-care (01) ==
LOC: HO.LAB 09:39
PROVIDERS: PCP Internal Medicine; Visit Provider Physician Assistant
DX: B34.9 Viral infection, unspecified (principal); J11.1 Influenza due to unidentified influenza virus with other respiratory manifestations; R09.89 Other specified symptoms and signs involving the circulatory and respiratory systems
CPT/HCPCS: 87637; 87880; 99202

== ENCOUNTER 2025-11-26 09:39 | Outpatient (AMB) | payer MEDICARE, SELFPAY ==
--- NOTE | 2025-11-26 09:39 | AM.OFFWIN_ITS ---
Intake Vital Signs 11/26/25 09:40 Height 5 ft 11 in Weight 251 lb BMI 35.0 BP 126/89 Blood Pressure Location Lt brachial Position Sitting Respiration 16 Pulse 103 H Pulse Source Pulse Oximeter Temp 101.2 F H Temp Source Oral Pulse Oximetry (%) 95 Oxygen Delivery Method Room Air Intake Visit Reasons: EP - ?Flu Intake Note: EP has cough (yellowish sputum), headache and pain over the sinus, dizzy, fever and chill since yesterday. Allergies No Known Allergies Allergy (Verified 11/26/25 09:55) Do you need a note to return to daycare/school/sports/work: No HPI HPI Comments History of Present Illness Details History - The patient is a 65-year-old male pres enting with flu-like symptoms. - He reports that symptoms began yesterd ay morning, and he left work early due to feeling unwell. - He describes generalized joint aches, severe chills that persisted until sheet fed printer, and a cough secondary to postnasal drip, which has been disrupting his sleep. - He had a fever of 101.5?F this morning , which was 101.2?F upon measurement at the clinic. - Associated symptoms include constant n ausea with poor appetite, dizziness, and sinus pressure over the forehead. - He denies vomiting but felt the urge t o vomit yesterday. - Approximately three weeks ago, he was treated for a sinus issue at an urgent care with an antibiotic, which resolved the problem. - He denies a history of asthma or COPD. - He reports an allergic reaction (skin redness) to an unspecified nausea medication prescribed previously. - He is up to date on his immunizations, including the flu, RSV, shingles, tetanus, and pneumonia shots, but has not received the COVID-19 vaccine this year. - His past medical history is significan t for renal cell carcinoma in 1998, resulting in a solitary kidney, and double hernia surgery two months ago. - Pulmonary nodules were incidentally fo und on a pre-operative CT scan and are being monitored, with another scan scheduled for this coming Monday. Review of Systems - Constitutional: Reports fever, chills, and malaise. Denies significant weight change. - HEENT: Reports sinus pressure, postnas al drip, and a sore throat. Denies sinus tenderness with palpation. - Respiratory: Reports cough and dyspnea associated with coughing spells. Denies a history of asthma or COPD. - Gastrointestinal: Reports nausea and p oor appetite. Denies vomiting. - Musculoskeletal: Reports generalized a rthralgias. - Neurological: Reports dizziness. Denie s headache. All systems reviewed and are unremarkable except as noted in HPI Physical Exam General: Cooperative, healthy appearing, comfortable and no acute distress Orientation/consciousness: Patient oriented x3 Limitations: No limitations Head: Normal to inspection Ears: Hearing grossly normal bilaterally, external ears normal, EAC's normal bilaterally and TM's normal bilaterally Nose: Normal external nose present, Normal nares present and No nasal discharge present Face and sinus: Normal facial exam and sinuses nontender Mouth: Normal oral and palatal mucosa present and moist mucous membranes Throat: Tonsils normal, no exudates, uvula midline, posterior oropharynx erythema Eyes: Appearance normal, both eyes and all related structures Neck: Normal visual inspection, full ROM Respiratory: Clear to auscultation bilaterally. Normal respiratory effort, able to speak in complete sentences, actively coughing, no respiratory distress, not tachypneic, no tripod positioning and no use of accessory muscles Cardiovascular: Regular rate and rhythm. Normal S1 and S2 Skin: No rashes or lesions noted Neuro: Patient oriented x3 Extremities: Normal to inspection and Yes no clubbing, cyanosis or edema 5. Solitary Kidney - Due to his history of a solitary kidne y, the patient was advised to avoid NSAIDs such as Motrin. - It was noted that he took a 200 mg dos e of Motrin last night for a severe headache, but he was counseled that Tylenol is the preferred agent for him. [facility] Surgical History H/O vascular surgery H/O knee surgery History of nephrectomy Results AMB Rapid Strep 2 AMB Rapid Strep Negative Last Edit by Andrea Guthrie MA on 11/26/25 10:04 Assessment & Plan Assessment & Plan (1) Acute viral syndrome: Code(s): B34.9 - Viral infection, unspecified Plan: Patient was informed and verbally consented to the use of an ambient scribe for clinic note documentation during this visit. - Pt is slightly tachycardic (regular rhythem on auscultation) likely 2/2 fever and/or mild dehydration, febrile to 101.2F, O2 95%, pt well appearing and PE unremarkable. - The patient's symptoms are highly suggestive of influenza. - Nasal swabs for influenza, COVID-19, and RSV, along with a rapid strep test, were performed. - The rapid strep test was negative. - The remaining test results will be available on Monday, due to the holiday. - A prescription for Tamiflu has been sent to the pharmacy. - The patient was advised to start Tamiflu today to gain a head start on treatment, which may lessen the duration and severity of his symptoms. If side effects are not tolerable, he can discontinue the Tamiflu. - He will be contacted on Monday with the test results and will be instructed to either continue or discontinue the Tamiflu accordingly. - Recommended symptomatic care includes Tylenol for fever and aches, and ensuring adequate hydration with fluids and electrolytes, such as sugar-free Gatorade. - Non-pharmacological interventions were recommended, including chewing fresh ricardo, drinking hot tea with honey, and consuming flat ricardo ivonne. - To manage sinus pressure and postnasal drip, saline nasal rinses with a neti pot and distilled water were recommended, to be followed by the use of Flonase. - The patient was instructed on the proper administration technique for Flonase. - The use of an rqip-sof-pomgizj antihistamine, such as Claritin, was also suggested to help dry up secretions. - A prescription for Zofran for nausea was offered, but the patient declined due to a past allergic reaction (skin redness) to an unknown antiemetic. - The patient has a follow-up CT scan scheduled for Monday to monitor pulmonary nodules. - He was advised to proceed with the scheduled scan even if he is still ill, as it would be beneficial for detecting any potential pneumonia that may develop. Orders: Orders AMB Rapid Strep Screen Today Z13.9 - Encounter for screening, unspecified SARS-CoV2/FLU/RSV Today R09.89 - Other specified symptoms and signs involving the circulatory and respiratory systems Medications: New oseltamivir (Tamiflu) 75 mg PO Q12H 10 caps 0RF 5 days Coding Level of Care Code New Pt Level 3 (26022) Diagnoses Acute viral syndrome B34.9
[2025-11-26 09:40] VITALS: BP 126/89; PULSE 103; RESP 16; TEMP 38.4; O2SAT 95; BMI 35.0
--- OUTSIDE RECORDS SUMMARY | 2025-11-26 10:10 | XMS_ITS | Clinical Summary ---
Author Organization [facility] Address [facility] [employer] [address] [address] Phone Care Team Providers Care Lead Front Desk Agent Name Role Phone Sin Vegas MD Primary Care Provider [phone] Allergies No known active allergies Medications acetaminophen [...] topic Medical Devices Not on file Insurance [facility] Care Teams Lead Front Desk Agent Relationship Specialty Start Date End Date Sin Vegas MD [address] [address] PCP - General 10/23/23 Additional Source Comments The information contained in this document represents components of the legal health record. It is not the complete legal health record.[facility]
== END 2025-11-26 10:55 | disposition home or self-care (01) ==
PROVIDERS: PCP Internal Medicine; Visit Provider Physician Assistant
DX: B34.9 Viral infection, unspecified (principal); Z13.9 Encounter for screening, unspecified